=== PATIENT | female | born 1980 | race Caucasian/White ===

== ENCOUNTER 2022-07-10 14:46 | Outpatient (CLI) | payer BC, SELFPAY ==
--- NOTE | 2022-07-10 15:30 | MR_ITS ---
[address] [address] Phone:?[phone] Fax:?[phone] Referring Physician Information: Digoenes Murdock M.D. [id number] [facility] [address] Phone:?[phone] Fax:?[phone] Patient:Rachel Dial D.O.B:?1980 Sex:?Female Phone:?[phone] [facility] MRN:?[id number] Exam Date:?07/10/2022 ? EXAM: MRI of the RIGHT KNEE, without contrast CLINICAL HISTORY: Right knee pain and swelling without reported traumatic injury or previous surgery. Evaluate for meniscal tear. COMPARISONS: Plain radiographs 02/25/2022. TECHNICAL: MR sequences of the right knee: sagittals: PD, PDFS coronals: PD, STIR axials: PD, T2 FS CONTRAST: None SEDATION: None FINDINGS: Bones: There are surgical changes status post previous intramedullary dat fixation of the femur. Patellofemoral joint: Cartilage: Diffuse near full-thickness and full-thickness chondromalacia over the median patellar ridge, medial patellar facet, and over the central and medial portions of the trochlea with associated degenerative subchondral cystic changes. Retinacula: The medial and lateral retinacula are intact. Fat pads: The infrapatellar, quadriceps, and prefemoral fat pads are unremarkable. Knee joint: Effusion: Moderate right knee joint effusion. Popliteal cyst: None. Intra-articular bodies: There is a 6 x 5 x 5 mm intra-articular body posterior to the tibial insertion of the posterior cruciate ligament best seen on sagittal series 6 image 18. Posteromedial corner: The semimembranosus and pes anserine tendons are intact. Medial compartment: Medial meniscus: There is a 2.5 cm in length complex flap tear of the body through posterior horn of the medial meniscus with a flap of torn meniscal tissue from the body flipped superomedial to the jointline. There is 5 mm of medial meniscal extrusion best seen on coronal series 7 image 18. Cartilage: There is diffuse near full-thickness and full-thickness chondral loss over most of the weightbearing portion of the medial femoral condyle and over the peripheral portion of the medial tibial plateau with associated degenerative subchondral edema-like signal. Lateral compartment: Lateral meniscus: There is subtle fraying of the free edge and inferior surface of the body/posterior horn junction through posterior horn of the lateral meniscus measuring 1 cm in length best seen on coronal series 7 images 19 and 20 and sagittal series 5 images 10. No unstable lateral meniscal tear is seen. Cartilage: Intact. Ligaments: Anterior cruciate ligament: Intact. Posterior cruciate ligament: Intact. Medial collateral ligament: Intact. Posterior oblique ligament: Intact. Fibular collateral ligament: Intact. Posterolateral corner: The distal biceps femoris tendon, iliotibial band, popliteus tendon, popliteus muscle, popliteofibular ligament, and arcuate ligament are intact. Extensor mechanism: Patellar tendon: Intact. Quadriceps tendon: Intact. IMPRESSION: 1. 2.5 cm in length complex flap tear of the body through posterior horn of the medial meniscus with a flap of torn meniscal tissue from the body flipped superomedial to the jointline. 5 mm of medial meniscal extrusion. 2. Subtle fraying of the free edge and inferior surface of the body/posterior horn junction through posterior horn of the lateral meniscus measuring 1 cm in length. No unstable lateral meniscal tear. 3. Diffuse near full-thickness and full-thickness chondromalacia over the median patellar ridge, medial patellar facet, and over the central and medial portions of the trochlea with associated degenerative subchondral cystic changes. 4. Diffuse near full-thickness and full-thickness chondral loss over most of the weightbearing portion of the medial femoral condyle and over the peripheral portion of the medial tibial plateau with associated degenerative subchondral edema-like signal. 5. 6 x 5 x 5 mm intra-articular body posterior to the tibial insertion of the posterior cruciate ligament. 6. Moderate right knee joint effusion. 7. No ligamentous injury of the right knee. RCB Electronically signed on 07/11/2022 7:23:00 AM by Sherif Madsen M.D.
== END 2022-07-10 14:47 | disposition home or self-care (01) ==
PROVIDERS: PCP Family Medicine; Visit Provider Orthopaedic Surgery
DX: M25.561 Pain in right knee (principal); M23.221 Derangement of posterior horn of medial meniscus due to old tear or injury, right knee; M23.251 Derangement of posterior horn of lateral meniscus due to old tear or injury, right knee; M22.41 Chondromalacia patellae, right knee; M25.461 Effusion, right knee
CPT/HCPCS: 73721

== ENCOUNTER 2022-11-13 16:00 | Outpatient (RCR) | payer BC, SELFPAY | END 2022-11-13 16:48 | disposition home or self-care (01) | PROVIDERS: PCP Family Medicine; Visit Provider Orthopaedic Surgery | DX: M17.11 Unilateral primary osteoarthritis, right knee (principal); S83.231A Complex tear of medial meniscus, current injury, right knee, initial encounter; S83.271A Complex tear of lateral meniscus, current injury, right knee, initial encounter; Z51.89 Encounter for other specified aftercare | CPT/HCPCS: 97110; 97112; 97140; 97161; 97530 ==

== ENCOUNTER 2024-01-08 06:04 | Day surgery (SDC) | payer OTHER, SELFPAY ==
[2024-01-08] VITALS (22 sets, daily range): BP systolic 107–148; BP diastolic 61–93; PULSE 68–92; RESP 14–20; TEMP 36.2–36.6; O2SAT 95–100; BMI 32.8
[2024-01-08] MEDS: OXYCODONE (CR) 10 MG TAB.ER.12H PO (06:15)
[2024-01-08] MEDS: CELECOXIB 200 MG CAPSULE PO (06:15)
[2024-01-08] MEDS: ACETAMINOPHEN 500 MG TABLET 1000 MG PO ×2 (06:15→12:20)
[2024-01-08] MEDS: LACTATED RINGERS 1000 ML 1,000 ML 100 ML IV ×2 (06:20→07:58)
[2024-01-08] MEDS: SODIUM CHLORIDE 0.9 % (FLUSH) 10 ML SYRINGE IVF (06:20)
[2024-01-08] MEDS: MIDAZOLAM HCL 1 MG/ML inj IVP (07:05)
[2024-01-08] MEDS: fentaNYL 100 MCG/2 ML inj IVP (07:05)
--- NOTE | 2024-01-08 07:24 | SUR.PREOP ---
TIME?OUT:?07 PT/orin RN/SAW barrientos?VERIFICATION?OF?SURGICAL?SITE,?PROCEDURE,?AND?CONSENT OBTAINED?PRIOR?TO?INVASIVE?PROCEDURE.
[2024-01-08] MEDS: CEFAZOLIN 2 GM INJ IVP (07:35)
[2024-01-08] MEDS: TRANEXAMIC ACID 100 MG/ML INJ 1000 MG IV (07:40)
--- NOTE | 2024-01-08 08:46 | CRLHL7_ITS ---
For Patients: As a result of the Cures Act, medical imaging exams and procedure reports are released immediately into your electronic medical record. You may view this report before your referring provider. If you have questions, please contact your health care provider. Indication: POST OP TKA Technique: Two views right knee Findings/Impression: Hardware from a right total knee arthroplasty is in satisfactory position. Bone alignment is normal. No sign of acute fracture. Postop changes are within normal limits. Dictated by Reyes Thomson MD @ 01/08/2024 11:21:58 AM (Electronically Signed)
--- NOTE | 2024-01-08 08:49 | P.ORPRC_ITS ---
Procedure Note Date of procedure: 01/08/24 Procedure: PREOPERATIVE DIAGNOSIS: Right knee osteoarthritis POSTOPERATIVE DIAGNOSIS: Right knee osteoarthritis NAME OF OPERATION: Right total knee arthroplasty SURGEON: Diogenes Murdock MD [employer] FSC[employer] DEVELOPER: Emily Rosen PA-C ANESTHESIA: Spinal ESTIMATED BLOOD LOSS: 0 mL COMPLICATIONS: None SPECIMENS: None DRAINS: None PREOPERATIVE ANTIBIOTICS: Ancef 2 grams IMPLANTS: 1. J&J Attune # 5 posterior stabilized femur 2. #4 fixed-bearing tibia 3. # 5 posterior stabilized, 7 mm fixed-bearing polyethylene 4. 38 patella INDICATIONS: The patient is a 43-year-old with a longstanding history of severe, unrelenting right knee pain secondary to end-stage (grade IV) right knee osteoarthritis. Despite appropriate nonoperative management, including activity modification, anti-inflammatories, [id number] pain medication, bracing, physical therapy, and injections they continue to have pain and disability. Operative intervention was offered. The risks, benefits and expected outcomes were discussed in detail. These included but were not limited to: Infection, bleeding, injury to blood vessel or nerve, venous thromboembolism. All questions were answered to their satisfaction. Use of an clinical education assistant was necessary throughout the case for patient positioning and safety, soft tissue retraction, and closure. PROCEDURE: Spinal anesthesia was administered. The patient was placed supine on the operating table. The clinical education assistant made sure the patient was positioned appropriately. The lower extremity was prepped and draped in the usual sterile fashion. The limb was exsanguinated with the Matt bandage. The pneumatic t ourniquet was inflated to 300 mmHg. A standard anterior incision was made with the knee in flexion. Subcutaneous dissection was sharply taken through fascial layer #1. Full-thickness medial and lateral flaps were elevated. The clinical education assistant retracted the soft tissues and protected them throughout the case. A standard subvastus approach was made. The patella was everted. The infrapatellar fat pad was preserved. The menisci and cruciate ligaments were sharply d?brided. Marginal osteophytes were d?brided with the rongeur. The drill was used to penetrate the femoral canal. The canal was aspirated and irrigated with pulse lavage. The intramedullary femoral guide was placed for a 5-degree valgus cut, removing 10 mm off the distal femur. The saw was used to make the cut. Whitesides line and the trans epicondylar axis were marked. The femoral sizing guide was pinned onto the distal femur. Three degrees of external rotation nicely parallels the transepicondylar axis. Pins were placed for posterior referencing. The four-in-one cutting guide was pinned onto the distal femur. The anterior, posterior, and chamfer cuts were made. The clinical education assistant protected the collateral ligaments. The box cutting guide was pinned. The box cuts were made. The boxed trial was placed and was an excellent fit. Drill holes for the lugs were made. Attention was then turned to the proximal tibia. The extramedullary tibial guide was placed for a neutral varus/valgus cut with 5 degrees of posterior slope, removing 2 mm based off the medial tibial surface. The clinical education assistant protected the collateral ligaments and the neurovascular bundle. The saw was used to make the cut. Trial components were placed. The knee was nicely balanced in both flexion and extension. The trial components were removed. The tray was placed in appropriate rotation, parallel to our tibial cutting pins. It was pinned by the clinical education assistant and the drill and the punch were used. The tray was removed. The punch was used again. We placed a bone plug in the femoral canal. Attention was then turned to the patella. [place] patellar thickness was 23 mm. The lobster claw resection guide was used with the 7.5 mm lorrie. The saw was used to make the cut. Drill holes were made by the clinical education assistant. The trial was placed and was an excellent fit. Cancellous surfaces were irrigated with pulse lavage and thoroughly dried by the clinical education assistant. We cemented the tibial component, then the femoral component. We impacted the 7 mm polyethylene onto the tibial tray. The knee was brought into full extension. We then cemented the patellar component. Excessive cement was removed. The cement was allowed to harden. The knee was taken through a range of motion and was found to be nicely balanced in both flexion and extension. The patella tracks centrally. The clinical education assistant did a three minute dilute Betadine solution soak. The clinical education assistant irrigated the wound with 3 liters of normal saline via pulse lavage. The clinical education assistant reapproximated the extensor mechanism with #1 Vicryl in an interrupted [id number] fashion. The clinical education assistant then ran the extensor mechanism with a #1 PDO Stratafix. The clinical education assistant closed the subcutaneous tissues with a 3-0 Stratafix and the skin with a running 3-0 Stratafix in a subcuticular fashion. Glue was used to seal the skin. The clinical education assistant placed a dry dressing. Sponge and needle counts were correct x2. The patient tolerated the procedure well. There were no apparent complications. They were carefully transferred to the hospital bed and taken to the postanesthesia care unit in satisfactory condition. PLAN: The patient will be mobilized with physical therapy. Aspirin will be used for DVT prophylaxis. They will be discharged to home once medically appropriate.
--- NOTE | 2024-01-08 09:50 | W.ANESCHARGE ---
Anesthesia Charges Start Date/Time Anesthesia Start Date: 01/08/24 Anesthesia Start Time: 07:25 Stop Date/Time Anesthesia Stop Date: 01/08/24 Anesthesia Stop Time: 09:38
--- NOTE | 2024-01-08 09:59 | SUR.PHASEI ---
Patient meets anesthesia PACU discharge criteria
--- NOTE | 2024-01-08 10:34 | W.PM.NB ---
Nerve Block Nerve Block Time Seen by Provider: 07:00 Date Seen: 01/08/24 Type of block requested by surgeon for post-operative analgesia: adductor canal Side: right Time out performed: Yes Verification of patient name: Yes Verification of date of : Yes Site marking: site marked Name of person performing procedure: Efra March Continuous monitoring Was continuous monitoring of O2 sat, B/P, quality assurance monitor, recorded every 15 minutes?: Yes Procedure Checklist: sterile prep, needles and gloves Ultrasound guided. Images saved: Yes Medications given in 5ml increments after negative aspiration: Ropivicaine %: 0.5 mL: 30 Needle gauge: 20 Decadron (mg): 10 Precedex (mcg): 25 Patient tolerated procedure well: Yes Additional comments: injected in 5ml increments after negative aspiration Block Charges Block Charge (with Pro Fee): Femoral Nerve Use of Ultrasound Machine for Block: Yes- US Guidance/pain block
--- NOTE | 2024-01-08 10:35 | W.PM.NB ---
Nerve Block Nerve Block Time Seen by Provider: 07:00 Date Seen: 01/08/24 Type of block requested by surgeon for post-operative analgesia: geniculars Side: right Time out performed: Yes Verification of patient name: Yes Verification of date of : Yes Site marking: site marked Name of person performing procedure: Efra March Continuous monitoring Was continuous monitoring of O2 sat, B/P, cardiac specialist, recorded every 15 minutes?: Yes Procedure Checklist: sterile prep, needles and gloves Ultrasound guided. Images saved: No Medications given in 5ml increments after negative aspiration: Ropivicaine %: 0.5 mL: 12 Needle gauge: 25 Patient tolerated procedure well: Yes Additional comments: Injected in 4ml increments after negative aspiration Block Charges Block Charge (with Pro Fee): Genicular Nerve Block Use of Ultrasound Machine for Block: No
[2024-01-08] MEDS: OXYCODONE 5 MG TABLET PO ×2 (10:45→13:31)
[2024-01-08] MEDS: LACTATED RINGERS 1000 ML 1,000 ML 30 ML IV (11:25)
[2024-01-08] MEDS: hydrOXYzine pamoate 25 MG CAPSULE PO (12:20)
== END 2024-01-08 13:58 | disposition home or self-care (01) ==
PROVIDERS: PCP Family Medicine; Visit Provider Orthopaedic Surgery
PROC: (CPT 27447; principal; 2024-01-08 07:30)
DX: M17.11 Unilateral primary osteoarthritis, right knee (principal); G89.18 Other acute postprocedural pain
CPT/HCPCS: 27447; 01402; 64447; 64454; 73560; 76942; 97110; 97116; 97161; 97530; A9270; C1776; J0690; J1100; J2250; J2405; J2704; J2795; J3010; J7120

== ENCOUNTER 2024-04-05 11:15 | Outpatient (RCR) | payer OTHER, SELFPAY | END 2024-08-03 23:59 | disposition home or self-care (01) | PROVIDERS: PCP Family Medicine; Visit Provider Orthopaedic Surgery | DX: M17.11 Unilateral primary osteoarthritis, right knee (principal); Z51.89 Encounter for other specified aftercare | CPT/HCPCS: 97110; 97116; 97140; 97161; 97164 ==